=== PATIENT | female | born 1965 | race Two or more races ===

== ENCOUNTER → 2016-10-26 | Outpatient (CLI) | payer MEDICAID ==
--- NOTE | 2016-10-26 13:24 | RADIOLOGY REPORT (SQ) ---
EXAM DESCRIPTION: C SP 4 OR 5 VIEWS COMPLETED DATE/TIME: 10/26/2016 12:33 pm REASON FOR STUDY: CERVICALGIA M54.2 CERVICALGIA COMPARISON: None. NUMBER OF VIEWS: Five views. TECHNIQUE: AP, lateral, obliques and odontoid radiographic images acquired of the cervical spine. LIMITATIONS: None. FINDINGS: MINERALIZATION: Normal. ALIGNMENT: There is straightening of the upper cervical spine. VERTEBRAE: Vertebral bodies of normal height. DISCS: Disc spaces are narrowed at C3-4, C4-5, C5-6, and C6-7. FORAMINA: No osteophytes or foraminal narrowing. LATERAL AND POSTERIOR ELEMENTS: Facets, lateral masses and spinous processes without significant find ings. HARDWARE: None in the spine. SOFT TISSUES: No masses or calcifications. Lung apices clear. OTHER: No other significant finding. IMPRESSION: Degenerative disc changes with no acute abnormality. TECHNICAL DOCUMENTATION: JOB ID: [id number] [employer]- All Rights Reserved
== END ==
LOC: OD 12:04
PROVIDERS: ATTEND Family Medicine
DX: M54.2 Cervicalgia (principal)
CPT/HCPCS: 72050

== ENCOUNTER → 2018-08-10 | Outpatient (CLI) | payer SELFPAY ==
--- NOTE | 2018-08-10 13:09 | RADIOLOGY REPORT (SQ) ---
EXAM DESCRIPTION: CHEST PA/LATERAL COMPLETED DATE/TIME: 08/10/2018 12:55 pm REASON FOR STUDY: COUGH COMPARISON: 09/01/2014 EXAM PARAMETERS: NUMBER OF VIEWS: two views TECHNIQUE: Digital Frontal and Lateral radiographic views of the chest acquired. RADIATION DOSE: NA LIMITATIONS: none FINDINGS: LUNGS AND PLEURA: No opacities, masses or pneumothorax. No pleural effusion. MEDIASTINUM AND HILAR STRUCTURES: No masses or contour abnormalities. HEART AND VASCULAR STRUCTURES: Heart normal size. No evidence for failure. BONES: No acute findings. HARDWARE: None in the chest. OTHER: Breast implants. IMPRESSION: 1. NO SIGNIFICANT RADIOGRAPHIC FINDING IN THE CHEST. TECHNICAL DOCUMENTATION: JOB ID: [id number] [employer]- All Rights Reserved Reading location - IP/workstation name: [email or web address]
== END ==
LOC: OD 12:39
PROVIDERS: ATTEND Nurse Practitioner Family
DX: R05 Cough (principal)
CPT/HCPCS: 71046

== ENCOUNTER 2019-06-12 09:12 | Observation (INO) | payer SELFPAY ==
[2019-06-12] MEDS ORDERED: ASPIRIN 81 MG TABLET, CHEWABLE PO ONE (10:46)
--- NOTE | 2019-06-12 10:49 | ER Document Report ---
ED Medical Screen (RME) - General Chief Complaint: General Weakness Stated Complaint: PALPITATIONS Time Seen by Provider: 06/12/19 10:46 Primary Care Provider: ADDISON JIMENEZ FNP-C [Primary Care Provider] - Follow up as needed Notes: HPI: 54-year-old female presenting to the emergency department complaining of chest pain that began around 830 this morning while she was cleaning a table at home. Patient developed some shortness of breath. 1 to 2 hours later while the discomfort was still continuing she developed a pressure sensation to the right upper arm and in the right perioral region. Patient does complain of some mild shortness of breath. No prior history of anything similar. There is a family history of coronary artery disease, PR in her father at age 53. Patient does not smoke. Patient complains of mild generalized weakness. No recent illness I have greeted and performed a rapid initial assessment of this patient. A comprehensive ED assessment and evaluation of the patient, analysis of test results and completion of the medical decision making process will be conducted by additional ED providers PHYSICAL EXAMINATION: GENERAL: Well-appearing, well-nourished and in mild acute distress. HEAD: Atraumatic, normocephalic. EYES: sclera anicteric, conjunctiva are normal. ENT: Moist mucous membranes. NECK: Normal range of motion LUNGS: Normal work of breathing lung sounds are clear to auscultation HEART: 2+ radial pulses bilaterally regular rate and rhythm ABD: limited by positioning for exam in triage. EXTREMITIES: no pitting or edema. No cyanosis. NEUROLOGICAL: No focal neurological deficits. Moves all extremities spontaneously and on command. PSYCH: Normal mood, normal affect. SKIN: Warm, Dry, normal turgor, no rashes or lesions noted. TRAVEL OUTSIDE OF THE [place] IN LAST 30 DAYS: No - Related Data Allergies/Adverse Reactions: No Known Allergies Allergy (Verified 06/12/19 10:46) Past Medical History - Social History Chew tobacco use (# tins/day): No Frequency of alcohol use: None Drug Abuse: None - Past Medical History Cardiac Medical History: Denies: Hx Coronary Artery Disease, Hx Heart Attack, Hx Hypertension Pulmonary Medical History: Reports: Hx Pneumonia Denies: Hx Asthma, Hx Bronchitis, Hx COPD Neurological Medical History: Denies: Hx Cerebrovascular Accident, Hx Seizures Musculoskeltal Medical History: Reports Hx Arthritis Psychiatric Medical History: Reports: Hx Anxiety, Hx Depression Past Surgical History: Reports: Hx Breast Surgery - Breast augmentation.. Denies: Hx Hysterectomy, Hx Pacemaker - Immunizations Hx Diphtheria, Pertussis, Tetanus Vaccination: No Physical Exam - Vital signs Vitals: Temp Pulse Resp BP Pulse Ox 98.0 F 59 L 16 119/73 98 06/12/19 09:36 06/12/19 09:36 06/12/19 09:36 06/12/19 09:36 06/12/19 09:36 Course - Vital Signs Vital signs: Temp Pulse Resp BP Pulse Ox 98.0 F 59 L 16 119/73 98 06/12/19 09:36 06/12/19 09:36 06/12/19 09:36 06/12/19 09:36 06/12/19 09:36 Doctor's Discharge - Discharge Referrals: ADDISON JIMENEZ FNP-C [Primary Care Provider] - Follow up as needed
[2019-06-12 11:37] LABS: ABSOLUTE LYMPHOCYTES (AUTO) 1.5 10^3/uL (0.5-4.7); ABSOLUTE MONOCYTES (AUTO) 0.4 10^3/uL (0.1-1.4); ABSOLUTE NEUT (AUTO) 2.5 10^3/uL (1.7-8.2); BASOPHILS % (AUTO) 0.7 % (0-2); HEMATOCRIT 39.2 % (36.0-47.0); HEMOGLOBIN 13.6 g/dL (12.0-15.5); MEAN CORPUSCULAR HEMOGLOBIN 30.9 pg (27.0-33.4); MEAN CORPUSCULAR HGB CONC 34.8 g/dL (32.0-36.0); MEAN CORPUSCULAR VOLUME 89 fl (80-97); MONOCYTES % (AUTO) 8.5 % (3-13); PLATELET COUNT 237 10^3/uL (150-450); RED BLOOD COUNT 4.42 10^6/uL (3.72-5.28); RED CELL DISTRIBUTION WIDTH 12.5 % (11.5-14.0); SEGMENTED NEUTROPHILS % (AUTO) 56.8 % (42-78); TOTAL CELLS COUNTED % (AUTO) 100 %; WHITE BLOOD COUNT 4.4 10^3/uL (4.0-10.5)
[2019-06-12 11:43] LABS: ALBUMIN 4.6 g/dL (3.5-5.0); ALKALINE PHOSPHATASE 60 U/L (38-126); ANION GAP 8 (5-19); ASPARTATE AMINO TRANSFERASE 30 U/L (14-36); BILIRUBIN,TOTAL 0.5 mg/dL (0.2-1.3); BLOOD UREA NITROGEN 7 mg/dL (7-20); CALCIUM 9.7 mg/dL (8.4-10.2); CARBON DIOXIDE 29 mmol/L (22-30); CHLORIDE 100 mmol/L (98-107); GLUCOSE 91 mg/dL (75-110); POTASSIUM 4.3 mmol/L (3.6-5.0); TOTAL PROTEIN 7.1 g/dL (6.3-8.2)
[2019-06-12 11:47] LABS: APPEARANCE,URINE CLEAR; BILIRUBIN,URINE NEGATIVE (NEGATIVE); COLOR,URINE STRAW; GLUCOSE, URINE NEGATIVE (NEGATIVE); KETONES,URINE NEGATIVE (NEGATIVE); LEUKOCYTE ESTERASE,URINE NEGATIVE (NEGATIVE); NITRITE,URINE NEGATIVE (NEGATIVE); PROTEIN,URINE NEGATIVE (NEGATIVE); UROBILINOGEN,URINE NEGATIVE mg/dL (<2.0)
--- NOTE | 2019-06-12 11:51 | RADIOLOGY REPORT (SQ) ---
EXAM DESCRIPTION: CHEST 2 VIEWS COMPLETED DATE/TIME: 06/12/2019 11:32 am REASON FOR STUDY: chest pain COMPARISON: PA and lateral views of the chest from 08/10/2018. EXAM PARAMETERS: NUMBER OF VIEWS: Two views. TECHNIQUE: PA and lateral views of the chest were obtained.. RADIATION DOSE: NA LIMITATIONS: none FINDINGS: LUNGS AND PLEURA: No consolidation, pleural effusion or pneumothorax. MEDIASTINUM AND HILAR STRUCTURES: No mediastinal or hilar contour abnormality. HEART AND VASCULAR STRUCTURES: The cardiac silhouette and pulmonary vasculature are within normal valdovinos its. BONES: Breast implants. HARDWARE: None in the chest. OTHER: No other finding. IMPRESSION: No acute cardiopulmonary process. TECHNICAL DOCUMENTATION: JOB ID: [id number] [employer]- All Rights Reserved Reading location - IP/workstation name: [email or web address]
--- NOTE | 2019-06-12 13:02 | ER Document Report ---
ED General - General Chief Complaint: General Weakness Stated Complaint: PALPITATIONS Time Seen by Provider: 06/12/19 10:46 Primary Care Provider: ADDISON JIMENEZ FNP-C [NURSE PRACTITIONER] - Follow up as needed Notes: Patient is a 54-year-old female with no significant past medical history who presents to the emergency department the chief complaint of intermittent right-sided symptoms and palpitations that began earlier today. The patient reports this morning she was cleaning a spot off of a table pushing hard with the right arm when she began to feel a pain in her chest and a weak sensation. She states she felt foggy in the head as if her sugar was low. She states that she drank some water and drank a bunch of "Powerade". She states that she was feeling better. She went on about her business, got in her car and attempted to drive to school. She states she drove about a mile and then sta rted having pain in the right upper arm. She states during this episode she also experienced some numbness to the right upper and right lower lip. She states these both lasted approximately 3 minutes or less and then subsided. She states she was able to make it to the parking lot of school and just felt generally weak. She states that she was able to walk to the elevator, asked a fellow student for candy in the elevator because she assumed again that it was her sugar and ate the candy. She had her son assist her with getting to class and states that upon arriving to class she just felt as though she was going to "black out". She left the classroom had help walking down to her car, went to an urgent care and then decided to come to the emergency department. She states here in the ER she feels perfectly normal her symptoms have not returned. She reports her father has a history of quadruple bypass, prior stroke and at the age of 74. Only family history that is known. Patient is a vegan, no reported past medical history, drugs, alcohol or tobacco. TRAVEL OUTSIDE OF THE [place] IN LAST 30 DAYS: No - Related Data Allergies/Adverse Reactions: No Known Allergies Allergy (Verified 06/12/19 10:46) Past Medical History - Social History Smoking Status: Never Smoker Chew tobacco use (# tins/day): No Frequency of alcohol use: None Drug Abuse: None Family History: Reviewed & Not Pertinent Patient has suicidal ideation: No Patient has homicidal ideation: No - Past Medical History Cardiac Medical History: Denies: Hx Coronary Artery Disease, Hx Heart Attack, Hx Hypertension Pulmonary Medical History: Reports: Hx Pneumonia Denies: Hx Asthma, Hx Bronchitis, Hx COPD Neurological Medical History: Denies: Hx Cerebrovascular Accident, Hx Seizures Musculoskeletal Medical History: Reports Hx Arthritis Psychiatric Medical History: Reports: Hx Anxiety, Hx Depression Past Surgical History: Reports: Hx Breast Surgery - Breast augmentation.. Denies: Hx Hysterectomy, Hx Pacemaker - Immunizations Hx Diphtheria, Pertussis, Tetanus Vaccination: No Hx Pneumococcal Vaccination: 05/08/85 Review of Systems - Review of Systems Constitutional: Weakness EENT: denies: Blurred vision Cardiovascular: Chest pain, Palpitations Respiratory: No symptoms reported Gastrointestinal: No symptoms reported Genitourinary: No symptoms reported Musculoskeletal: Other - Arm pain Neurological/Psychological: Weakness, Numbness, Other - Expressive aphasia -: Yes All other systems reviewed and negative Physical Exam - Vital signs Vitals: Temp Pulse Resp BP Pulse Ox 98.0 F 59 L 16 119/73 98 06/12/19 09:36 06/12/19 09:36 06/12/19 09:36 06/12/19 09:36 06/12/19 09:36 - General General appearance: Appears well, Alert - HEENT Head: Normocephalic, Atraumatic Eyes: Normal Pupils: PERRL Ears: Normal External canal: Normal Tympanic membrane: Normal Sinus: Normal Nasal: Normal Mouth/Lips: Normal Mucous membranes: Normal Pharynx: Normal Neck: Normal - Respiratory Respiratory status: No respiratory distress Chest status: Nontender Breath sounds: Normal Chest palpation: Normal - Cardiovascular Rhythm: Regular Heart sounds: Normal auscultation - Abdominal Inspection: Normal Distension: No distension Bowel sounds: Normal Tenderness: Nontender Organomegaly: No organomegaly - Extremities General upper extremity: Normal inspection, Nontender, Normal color, Normal ROM, Normal temperature General lower extremity: Normal inspection, Nontender, Normal color, Normal ROM, Normal temperature, Normal weight bearing. No: Nahomi's sign - Neurological Neuro grossly intact: Yes Cognition: Normal Orientation: AAOx4 Layo Coma Scale Eye Opening: Spontaneous Layo Coma Scale Verbal: Oriented Lyons Coma Scale Motor: Obeys Commands Layo Coma Scale Total: 15 Speech: Normal Cranial nerves: Normal Cerebellar coordination: Normal Motor strength normal: LUE, RUE, LLE, RLE Additional motor exam normals: Equal associate financial advisor. No: Involuntary movements, Pronator drift, Weakness, Hemiplegia Sensory: Normal Notes: NIH 0 during time of exam - Psychological Associated symptoms: Normal affect, Anxious - Skin Skin Temperature: Warm Skin Moisture: Dry Skin Color: Normal Course - Re-evaluation Re-evalutation: 06/12/19 14:18 I discussed the results with the patient at this time. Given her history, I suspect TIA. We discussed the implications of this in the future risk for stroke. Recommended admission. At this time she is not sure that she wants to be admitted to the hospital for financial reasons. She states she would like to take some time and speak to a financial counselor here in the hospital before she makes a decision. We discussed the risks and benefits at great length. She understands them well. After she speaks with financial services we will regroup for plan. 06/12/19 16:08 Spoke with the patient who agreed to her hospital admission at this time. I called and spoke with janice Wilkins on admissions for today, he recommended For admission to be Dr. Denney. I called Dr. Denney at extension [phone] and discussed the case with him at length. He will come to the emergency department and evaluate the patient for hospital admission. 06/12/19 16:57 Patient does not meet criteria for any thrombolytics given her history and physical consistent with a TIA that has completely resolved - Vital Signs Vital signs: Temp Pulse Resp BP Pulse Ox 98.6 F 59 L 20 104/62 97 06/12/19 16:26 06/12/19 09:36 06/12/19 16:12 06/12/19 16:12 06/12/19 16:12 - Laboratory Result Diagrams: 06/12/19 11:00 06/12/19 11:00 Laboratory results interpreted by me: 06/12/19 10:57 Urine Blood MODERATE H Discharge - Discharge Clinical Impression: TIA (transient ischemic attack) Condition: Serious Disposition: ADMITTED INPATIENT Admitting Provider: Олег (Hospitalist) Unit Admitted: Telemetry Referrals: ADDISON JIMENEZ FNP-C [NURSE PRACTITIONER] - Follow up as needed
--- NOTE | 2019-06-12 13:36 | RADIOLOGY REPORT (SQ) ---
EXAM DESCRIPTION: CT HEAD WITHOUT COMPLETED DATE/TIME: 06/12/2019 1:20 pm REASON FOR STUDY: ? tia COMPARISON: None. TECHNIQUE: Axial images acquired through the brain without intravenous contrast. Images reviewed wi th bone, brain and subdural windows. Additional sagittal and coronal reconstructions were generated. Images stored on PACS. All CT scanners at this facility use dose modulation, iterative reconstruction, and/or weight based d osing when appropriate to reduce radiation dose to as low as reasonably achievable (ALARA). [facility]: Dose Right [facility]: CareDose [facility]: Dose Right [facility]: Teradose 4D [facility]: RFEyeD RADIATION DOSE: CT Rad equipment meets quality standard of care and radiation dose reduction techniq ues were employed. CTDIvol: 53.2 mGy. DLP: 991 mGy-cm. mGy. LIMITATIONS: None. FINDINGS: VENTRICLES: Normal size and contour. CEREBRUM: No masses. No hemorrhage. No midline shift. No evidence for acute infarction. Normal gra y/white matter differentiation. No areas of low density in the white matter. CEREBELLUM: No masses. No hemorrhage. No alteration of density. No evidence for acute infarction. EXTRAAXIAL SPACES: No fluid collections. No masses. ORBITS AND GLOBE: No intra- or extraconal masses. Normal contour of globe without masses. CALVARIUM: No fracture. PARANASAL SINUSES: No fluid or mucosal thickening. SOFT TISSUES: No mass or hematoma. OTHER: No other significant finding. IMPRESSION: NORMAL BRAIN CT WITHOUT CONTRAST. EVIDENCE OF ACUTE STROKE: NO. COMMENT: Quality ID # [id number]: Final reports with documentation of one or more dose reduction techniques (e.g., Automated exposure control, adjustment of the mA and/or kV according to patient size, use of iterative reconstruction technique) TECHNICAL DOCUMENTATION: JOB ID: [id number] [employer]- All Rights Reserved Reading location - IP/workstation name: [email or web address]
--- NOTE | 2019-06-12 17:29 | PDOC H&P ---
History of Present Illness Admission Date/PCP: BEE GRULLON DO History of Present Illness: HARVEY LAZO is a 54 year old female with no significant past medical history who is on no medications at home who woke up this morning and was still feeling tired. She said she felt very thirsty and drank several glasses of water. 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 She said that when she got into the classroom she would just wanted to put her head down on her desk and she decided to leave the class. She said she had to get help with the buttons on the elevator to get out of the building because she could not work the buttons. She said at one point she also felt like she had a sensation of pain on the right side of her face but that also lasted only a second and then stopped. She said at one point she was having some trouble getting some words out but that also was very brief. She got someone to bring her over to the [facility] and she said shortly thereafter her symptoms completely abated. Her vital signs and all of her labs have been completely normal. She has not had a recurrence of her symptoms. Her head CT was normal. She has a family history of diabetes, thyroid disease, and heart disease. She does not smoke. Past Medical History Cardiac Medical History: Denies: Coronary Artery Disease, Myocardial Infarction, Hypertension Pulmonary Medical History: Reports: Pneumonia Denies: Asthma, Bronchitis, Chronic Obstructive Pulmonary Disease (COPD) Neurological Medical History: Denies: Seizures Musculoskeltal Medical History: Reports: Arthritis Psychiatric Medical History: Reports: Depression Hematology: Reports: Anemia Past Surgical History Past Surgical History: Denies: Hysterectomy, Pacemaker Social History Smoking Status: Never Smoker Electronic Cigarette use?: No Family History Family History: Reviewed & Not Pertinent, CVA, DM, Thyroid Disfunction Parental Family History Reviewed: Yes Children Family History Reviewed: Yes Sibling(s) Family History Reviewed.: Yes Medication/Allergy Home Medications: Ferrous Sulfate [Iron] 650 mg PO QID 11/04/15 Allergies/Adverse Reactions: No Known Allergies Allergy (Verified 06/12/19 10:46) Review of Systems All systems: reviewed and no additional remarkable complaints except as stated - All systems were reviewed and were negative except as noted in the HPI Physical Exam Vital Signs: Temp Pulse Resp BP Pulse Ox 98.6 F 56 L 20 104/62 97 06/12/19 16:26 06/12/19 11:25 06/12/19 16:12 06/12/19 16:12 06/12/19 16:12 Intake & Output 06/11/19 06/12/19 06/13/19 06:59 06:59 06:59 Weight 61.7 kg General appearance: PRESENT: no acute distress, cooperative, well-developed, well-nourished Head exam: PRESENT: atraumatic, normocephalic Eye exam: PRESENT: EOMI, PERRLA. ABSENT: conjunctival injection, nystagmus, scleral icterus Ear exam: PRESENT: normal external ear exam Mouth exam: PRESENT: moist, neck supple Throat exam: ABSENT: post pharyngeal erythema Neck exam: PRESENT: full ROM. ABSENT: carotid bruit, JVD, lymphadenopathy, meningismus, tenderness, thyromegaly Respiratory exam: PRESENT: clear to auscultation stacey, symmetrical, unlabored. ABSENT: accessory muscle use, chest wall tenderness, crackles, prolonged expiratory phas, rales, retraction, rhonchi, tachypnea, wheezes Cardiovascular exam: PRESENT: RRR, +S1, +S2. ABSENT: diastolic murmur, systolic murmur Pulses: PRESENT: normal carotid pulses Vascular exam: PRESENT: normal capillary refill GI/Abdominal exam: PRESENT: normal bowel sounds, soft. ABSENT: distended, guarding, rebound, tenderness Extremities exam: ABSENT: clubbing, pedal edema Musculoskeletal exam: PRESENT: normal inspection. ABSENT: deformity Neurological exam: PRESENT: alert, awake, oriented to person, oriented to place, oriented to time, oriented to situation, CN II-XII grossly intact. ABSENT: motor sensory deficit Psychiatric exam: PRESENT: appropriate affect, normal mood Skin exam: PRESENT: dry, warm Results Laboratory Results: 06/12/19 11:00 06/12/19 11:00 06/12/19 06/12/19 06/12/19 10:57 11:00 11:00 WBC 4.4 RBC 4.42 Hgb 13.6 Hct 39.2 MCV 89 MCH 30.9 MCHC 34.8 RDW 12.5 Plt Count 237 Seg Neutrophils % 56.8 Sodium 137.0 Potassium 4.3 Chloride 100 Carbon Dioxide 29 Anion Gap 8 BUN 7 Creatinine 0.60 Est GFR ( Amer) > 60 Glucose 91 Calcium 9.7 Total Bilirubin 0.5 AST 30 Alkaline Phosphatase 60 Total Protein 7.1 Albumin 4.6 Urine Color STRAW Urine Appearance CLEAR Urine pH 7.0 Ur Specific Gar[place] 1.000 Urine Protein NEGATIVE Urine Glucose (UA) NEGATIVE Urine Ketones NEGATIVE Urine Blood MODERATE H Urine Nitrite NEGATIVE Ur Leukocyte Esterase NEGATIVE Urine WBC (Auto) 0 Urine RBC (Auto) 0 06/12/19 11:00 Troponin I < 0.012 Impressions: Chest X-Ray 06/12/19 10:46 IMPRESSION: No acute cardiopulmonary process. Head CT 06/12/19 12:56 IMPRESSION: NORMAL BRAIN CT WITHOUT CONTRAST. EVIDENCE OF ACUTE STROKE: NO. Assessment and Plan - Diagnosis (1) TIA (transient ischemic attack) Is this a current diagnosis for this admission?: Yes Plan: She does not really have much in the way of risk factors to modify. We will check a lipid panel. We will put her on an aspirin. We will watch her on telemetry. We will get an MRI of the brain. Get a carotid Doppler ultrasound. If all of these are negative, I will likely recommend that she continue with the aspirin and be discharged with an event monitor and follow-up with a carbider. - Time Time Spent with patient: 35 or more minutes
--- NOTE | 2019-06-12 18:38 | EKG REPORT ---
SEVERITY:- NORMAL ECG - SINUS RHYTHM : Confirmed by: Jaimie Dueñas MD 12-Jun-2019 18:36:54
--- NOTE | 2019-06-13 00:01 | RADIOLOGY REPORT (SQ) ---
BILATERAL CAROTID ARTERY ULTRASOUND: 06/12/2019 10:58 PM BOW MAKER GIFT WRAPPING TECHNIQUE: Grayscale, color, and spectral evaluation of the carotid arteries was performed. COMPARISON: None available CLINICAL HISTORY: 54-year old patient with TIA. TECHNIQUE: Salcedo-scale, duplex and color Doppler images of the carotid systems are obtained bilaterally. (Validated velocity measurements with angiographic measurements - Velocity criteria are extrapolated from diameter data as defined by the Society of Radiologists in Ultrasound Consensus Conference, Radiology 2003; 229; 340 - 346.) FINDINGS: Minimal atherosclerotic plaque and intimal thickening is seen within both carotid bulbs as well as the proximal internal and external carotid arteries. Spectral analysis demonstrates peak systolic and end-diastolic velocities as follows: RIGHT: CCA: 93.4 cm/s, 33.2 cm/s Proximal ICA: 73.7 cm/s, 32.9 cm/s Distal ICA: 92.8 cm/s, 30.3 cm/s LEFT: CCA: 104 cm/s, 34.7 cm/s Proximal ICA: 87.1 cm/s, 33.6 cm/s Distal ICA: 93.7 cm/s, 32.0 cm/s The ICA:CCA ratio on the right is 1.0, and on the left is 0.9. There is antegrade flow in both vertebral arteries. IMPRESSION: No evidence of a hemodynamically significant abnormality within the internal carotid arteries. Peak systolic and end-diastolic velocities are all consistent with luminal narrowing of less than 50%.
--- NOTE | 2019-06-13 00:07 | RADIOLOGY REPORT (SQ) ---
EXAM DESCRIPTION: MRI OF THE BRAIN WITHOUT CONTRAST CLINICAL HISTORY: 54 years Female tia COMPARISON: CT examination same day. TECHNIQUE: Routine multiplanar MR imaging of the brain without contrast. FINDINGS: There are two tiny T2 and FLAIR hyperintense foci in the right anterior estes radiata and a tiny solitary focus in the left anterior estes radiata, within normal limits for the patient's age. The white matter and lee matter signal is otherwise unremarkable. Diffusion imaging is normal with no ischemic area. The subdural spaces are normal and the ventricles are normal in size. There is no mass or evidence of mass effect. There is no evidence of subarachnoid or intracerebral blood. The visualized paranasal sinuses are unremarkable except for a small retention cyst along the anteroinferior right maxillary sinus. The orbits, pituitary gland, cavernous sinuses and VII/VIII cranial nerve root complexes are unremarkable. The mastoid air cells are clear. The craniocervical junction is unremarkable. Of incidental note, sagittal images demonstrate moderate to severe degenerative disc disease at the C3-4 level with a posterior disc-spur complex slightly impressing upon the ventral cord. IMPRESSION: No intracranial abnormalities are recognized. Small retention cyst in the right maxillary sinus. Moderate to severe degenerative disc disease at C3-4 with a posterior disc-spur complex slightly impressing upon the ventral cord.
[2019-06-13] MEDS ORDERED: INFLUENZA QUAD (6MOS+) 2019-20 VAC 0.5 ML SYR IM ONE (00:31)
[2019-06-13] MEDS ORDERED: ACETAMINOPHEN 325 MG TABLET PO PRN (01:37)
[2019-06-13 08:24] LABS: ANION GAP 6 (5-19); BLOOD UREA NITROGEN 13 mg/dL (7-20); CALCIUM 9.3 mg/dL (8.4-10.2); CARBON DIOXIDE 29 mmol/L (22-30); CHLORIDE 104 mmol/L (98-107); CHOLESTEROL 212.97 mg/dL (0-200); GLUCOSE 79 mg/dL (75-110); POTASSIUM 4.2 mmol/L (3.6-5.0); TRIGLYCERIDES 53 mg/dL (<150)
[2019-06-13 08:35] LABS: DIRECT LDL 130 mg/dL (<100)
[2019-06-13] MEDS ORDERED: ASPIRIN 81 MG TABLET, CHEWABLE PO SCH (10:00)
[2019-06-13 13:17] VITALS: BP 104/60
--- NOTE | 2019-06-13 16:37 | PDOC DISCHARGE SUMMARY ---
Impression - Admit/DC Date/PCP Admission Date/Primary Care Provider: 06/12/19 18:07 BEE GRULLON DO Discharge Date: 06/13/19 - Discharge Diagnosis (1) TIA (transient ischemic attack) Is this a current diagnosis for this admission?: Yes - Additional Information Resuscitation Status: Full Code Discharge Diet: Regular Discharge Activity: Activity As Tolerated Referrals: BEE GRULLON DO [Primary Care Provider] - 06/21/19 4:00 pm MELODY BENAVIDEZ MD [EMERITUS] - (for ambulatory vamper (Zio patch or Holter monitor) due to palpitations, within 1 week) Home Medications: Aspirin [Aspirin 81 mg Chewable Tablet] 81 mg PO DAILY tab.chew 06/13/19 History of Present Illiness History of Present Illness: HARVEY LAZO is a 54 year old female with no significant past medical history who is on no medications at home who woke up this morning and was still feeling tired. She said she felt very thirsty and drank several glasses of water. 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 She said that when she got into the classroom she would just wanted to put her head down on her desk and she decided to leave the class. She said she had to get help with the buttons on the elevator to get out of the building because she could not work the buttons. She said at one point she also felt like she had a sensation of pain on the right side of her face but that also lasted only a second and then stopped. She said at one point she was having some trouble getting some words out but that also was very brief. She got someone to bring her over to the hospital and she said shortly thereafter her symptoms completely abated. Her vital signs and all of her labs have been completely normal. She has not had a recurrence of her symptoms. Her head CT was normal. She has a family history of diabetes, thyroid disease, and heart disease. She does not smoke. Hospital Course Hospital Course: MRI and carotid Dopplers were normal. Troponins were normal. HDL was 66, LDL was 130. She does not want to start a statin. She does agree to take a baby aspirin at home. She had no events on telemetry overnight. We have set her up with Dr. Benavidez for ambulatory cardiac monitoring. We scheduled her follow-up with her primary care provider. Labs and examination were reassuring she was discharged in stable condition. Physical Exam Vital Signs: Temp Pulse Resp BP Pulse Ox 97.9 F 67 16 104/60 99 06/13/19 13:14 06/13/19 13:14 06/13/19 13:14 06/13/19 13:14 06/13/19 13:14 Intake & Output 06/12/19 06/13/19 06/14/19 06:59 06:59 06:59 Intake Total 360 Output Total 0 Balance 0 360 Weight 62 kg General appearance: PRESENT: no acute distress, cooperative, well-developed, well-nourished Respiratory exam: PRESENT: clear to auscultation stacey, symmetrical, unlabored. ABSENT: accessory muscle use, chest wall tenderness, crackles, prolonged expiratory phas, rales, retraction, rhonchi, tachypnea, wheezes Cardiovascular exam: PRESENT: RRR, +S1, +S2. ABSENT: diastolic murmur, systolic murmur Pulses: PRESENT: normal carotid pulses Vascular exam: PRESENT: normal capillary refill GI/Abdominal exam: PRESENT: normal bowel sounds, soft. ABSENT: distended, guarding, rebound, tenderness Extremities exam: ABSENT: clubbing, pedal edema Musculoskeletal exam: PRESENT: normal inspection. ABSENT: deformity Neurological exam: PRESENT: alert, awake, oriented to person, oriented to place, oriented to time, oriented to situation, CN II-XII grossly intact. ABSENT: motor sensory deficit Results Laboratory Results: WBC 4.4 10^3/uL (4.0-10.5) 06/12/19 11:00 RBC 4.42 10^6/uL (3.72-5.28) 06/12/19 11:00 Hgb 13.6 g/dL (12.0-15.5) 06/12/19 11:00 Hct 39.2 % (36.0-47.0) 06/12/19 11:00 MCV 89 fl (80-97) 06/12/19 11:00 MCH 30.9 pg (27.0-33.4) 06/12/19 11:00 MCHC 34.8 g/dL (32.0-36.0) 06/12/19 11:00 RDW 12.5 % (11.5-14.0) 06/12/19 11:00 Plt Count 237 10^3/uL (150-450) 06/12/19 11:00 Lymph % (Auto) 33.0 % (13-45) 06/12/19 11:00 [place] % (Auto) 8.5 % (3-13) 06/12/19 11:00 Eos % (Auto) 1.0 % (0-6) 06/12/19 11:00 Baso % (Auto) 0.7 % (0-2) 06/12/19 11:00 Absolute Neuts (auto) 2.5 10^3/uL (1.7-8.2) 06/12/19 11:00 Absolute Lymphs (auto) 1.5 10^3/uL (0.5-4.7) 06/12/19 11:00 Absolute Monos (auto) 0.4 10^3/uL (0.1-1.4) 06/12/19 11:00 Absolute Eos (auto) 0.0 10^3/uL (0.0-0.6) 06/12/19 11:00 Absolute Basos (auto) 0.0 10^3/uL (0.0-0.2) 06/12/19 11:00 Seg Neutrophils % 56.8 % (42-78) 06/12/19 11:00 Sodium 139.1 mmol/L (137-145) 06/13/19 07:31 Potassium 4.2 mmol/L (3.6-5.0) 06/13/19 07:31 Chloride 104 mmol/L (98-107) 06/13/19 07:31 Carbon Dioxide 29 mmol/L (22-30) 06/13/19 07:31 Anion Gap 6 (5-19) 06/13/19 07:31 BUN 13 mg/dL (7-20) 06/13/19 07:31 Creatinine 0.67 mg/dL (0.52-1.25) 06/13/19 07:31 Est GFR ( Amer) > 60 (>60) 06/13/19 07:31 Est GFR (MDRD) Non-Af > 60 (>60) 06/13/19 07:31 Glucose 79 mg/dL (75-110) 06/13/19 07:31 Calcium 9.3 mg/dL (8.4-10.2) 06/13/19 07:31 Total Bilirubin 0.5 mg/dL (0.2-1.3) 06/12/19 11:00 Direct Bilirubin 0.0 mg/dL (0.0-0.4) 06/12/19 11:00 Neonat Total Bilirubin Not Reportable 06/12/19 11:00 Neonat Direct Bilirubin Not Reportable 06/12/19 11:00 Neonat Indirect Bili Not Reportable 06/12/19 11:00 AST 30 U/L (14-36) 06/12/19 11:00 ALT 18 U/L (<35) 06/12/19 11:00 Alkaline Phosphatase 60 U/L (38-126) 06/12/19 11:00 Troponin I < 0.012 ng/mL 06/13/19 07:30 Total Protein 7.1 g/dL (6.3-8.2) 06/12/19 11:00 Albumin 4.6 g/dL (3.5-5.0) 06/12/19 11:00 Triglycerides 53 mg/dL (<150) 06/13/19 07:31 Cholesterol 212.97 mg/dL (0-200) H 06/13/19 07:31 LDL Cholesterol Direct 130 mg/dL (<100) H 06/13/19 07:31 VLDL Cholesterol 11.0 mg/dL (10-31) 06/13/19 07:31 HDL Cholesterol 66 mg/dL (>40) 06/13/19 07:31 Urine Color STRAW 06/12/19 10:57 Urine Appearance CLEAR 06/12/19 10:57 Urine pH 7.0 (5.0-9.0) 06/12/19 10:57 Ur Specific [place] 1.000 06/12/19 10:57 Urine Protein NEGATIVE mg/dL (NEGATIVE) 06/12/19 10:57 Urine Glucose (UA) NEGATIVE mg/dL (NEGATIVE) 06/12/19 10:57 Urine Ketones NEGATIVE mg/dL (NEGATIVE) 06/12/19 10:57 Urine Blood MODERATE (NEGATIVE) H 06/12/19 10:57 Urine Nitrite NEGATIVE (NEGATIVE) 06/12/19 10:57 Urine Bilirubin NEGATIVE (NEGATIVE) 06/12/19 10:57 Urine Urobilinogen NEGATIVE mg/dL (<2.0) 06/12/19 10:57 Ur Leukocyte Esterase NEGATIVE (NEGATIVE) 06/12/19 10:57 Urine WBC (Auto) 0 /HPF 06/12/19 10:57 Urine RBC (Auto) 0 /HPF 06/12/19 10:57 Urine Ascorbic Acid NEGATIVE (NEGATIVE) 06/12/19 10:57 06/12/19 06/12/19 06/13/19 11:00 18:38 00:52 Troponin I < 0.012 < 0.012 < 0.012 06/13/19 07:30 Troponin I < 0.012 Impressions: Carotid Doppler Study 06/12/19 00:00 IMPRESSION: No evidence of a hemodynamically significant abnormality within the internal carotid arteries. Peak systolic and end-diastolic velocities are all consistent with luminal narrowing of less than 50%. Head MRI 06/12/19 00:00 IMPRESSION: No intracranial abnormalities are recognized. Small retention cyst in the right maxillary sinus. Moderate to severe degenerative disc disease at C3-4 with a posterior disc-spur complex slightly impressing upon the ventral cord. Chest X-Ray 06/12/19 10:46 IMPRESSION: No acute cardiopulmonary process. Head CT 06/12/19 12:56 IMPRESSION: NORMAL BRAIN CT WITHOUT CONTRAST. EVIDENCE OF ACUTE STROKE: NO. Plan Time Spent: Greater than 30 Minutes Stroke Is this a Stroke Patient?: No Acute Heart Failure - Is this a Heart Failure Patient?: No
== END 2019-06-13 13:53 | disposition home or self-care (01) ==
LOC: ER 09:12 → EH 18:07 → 3S 23:56
PROVIDERS: ADMIT Family Medicine; ATTEND Family Medicine
DX: G45.9 Transient cerebral ischemic attack, unspecified (principal); M50.31 Other cervical disc degeneration, high cervical region; R00.2 Palpitations; R07.9 Chest pain, unspecified; M79.621 Pain in right upper arm; R53.1 Weakness; R06.02 Shortness of breath; R29.700 NIHSS score 0; Z82.49 Family history of ischemic heart disease and other diseases of the circulatory system; Z83.3 Family history of diabetes mellitus; Z82.3 Family history of stroke; Z23 Encounter for immunization
CPT/HCPCS: 93005; 99285; 36415 ×2; 85025; 80048; 80053; 81001; 84484 ×2; 80061; 93880; 70551; 71046; 70450; 90686; 93010; G0378 ×2

== ENCOUNTER → 2019-07-02 | Outpatient (CLI) | payer MEDICAID ==
--- NOTE | 2019-07-03 13:39 | WOMENS IMAGING REPORT ---
EXAM DESCRIPTION: BILAT SCREENING MAMMO W/CAD COMPLETED DATE/TIME: 07/02/2019 1:49 pm REASON FOR STUDY: Z12.31 SCREENING MAMMO Z12.31 ENCNTR SCREEN MAMMOGRAM FOR MALIGNANT NEOPLASM OF B RE COMPARISON: None. EXAM PARAMETERS: Standard craniocaudal and mediolateral oblique views of each breast recorded using digital acquisition. Additional "push-back" craniocaudal and mediolateral oblique images acquired. Read with the assistance of CAD. .FORMERLY [facility], [facility] - QA on Request Traffic Operator Version 9.2 LIMITATIONS: None. FINDINGS: IMPLANTS: Bilateral subglandular implants. Findings present which are benign by mammographic criteria. No suspicious masses, calcifications or architectural distortion. Benign mammographic findings may include one or more of the following: Smooth masses, popcorn/rim/co arse calcifications, asymmetries, post-procedure changes, and lesions with long-standing stability. IMPRESSION: BENIGN MAMMOGRAPHIC FINDINGS. BIRADS 2 BREAST DENSITY: b. There are scattered areas of fibroglandular density. BIRAD: ASSESSMENT: 2 BENIGN FINDING(S) RECOMMENDATION: ROUTINE SCREENING COMMENT: The patient has been notified of the results by letter per MQSA requirements. Additional no tification policies are in place for contacting patient with suspicious or incomplete findings. Quality ID #[id number]: The [employer] recommends an annual screening mammogram for women aged 40 years or over. This facility utilizes a reminder system to ensure that all patients receive reminder letters, and/or direct phone calls for appointments. This includes reminders for routine scr eening mammograms, diagnostic mammograms, or other Breast Imaging Interventions when appropriate. Th is patient will be placed in the appropriate reminder system. TECHNICAL DOCUMENTATION: FINDING NUMBER: (1) ASSESSMENT: (1) JOB ID: [id number] 2010 [employer]- All Rights Reserved Reading location - IP/workstation name: [email or web address]
== END ==
LOC: WI 13:20
PROVIDERS: ATTEND Nurse Practitioner Family
DX: Z12.31 Encounter for screening mammogram for malignant neoplasm of breast (principal)
CPT/HCPCS: 77067

== ENCOUNTER → 2019-07-05 | Outpatient (CLI) | payer MEDICAID | LOC: OD 13:50 | PROVIDERS: ATTEND Physician Assistant | DX: R00.2 Palpitations (principal); R07.9 Chest pain, unspecified | CPT/HCPCS: 36415; 83735; 84443 ==

== ENCOUNTER → 2019-08-06 | Outpatient (CLI) | payer MEDICAID ==
--- NOTE | 2019-08-06 13:31 | DRAGON STRESS TEST REPORT ---
EXERCISE CARDIOLITE STRESS TEST USING SINGLE PHOTON EMMISION COMPUTERIZED TOMOGRAPHIC. DATE OF PROCEDURE: August 06, 2019 INDICATION : Chest pain CARDIAC RISK FACTORS: None significant RESTING EKG: Sinus rhythm without any baseline ST segment changes REASON FOR TERMINATION: Dyspnea and fatigue. PROCEDURE REPORT: Baseline heart rate 75 beats per minute with blood pressure of 113/76. Patient had no significant complaints. Patient was exercised on a standard Teo protocol. Patient exercised for a total of 10 minutes and 05 seconds. Peak heart rate 157 which is 94 % of predicted maximum. Peak blood pressure 159/71. Double product was noted to be adequate kcal. No significant EKG changes were noted. Patient had no significant complaints during the procedure or postprocedure. IMPRESSION EXERCISE PART: Excellent exercise tolerance for patient age. Borderline upsloping EKG ST segment changes with exercise. NUCLEAR DATA: At rest the patient was given 10.78 millicuries of technetium 99 sestamibi injected intravenously. As per protocol rest gated SPECT images were obtained. Subsequently the stress dose of 31.8 millicuries of technetium 99 sestamibi was injected intravenously at peak exercise and patient continued to exercise for 1 to 2 additional minute. As per protocol stress gated images were obtained. NUCLEAR INTERPRETATION: Both raw and processed data were used for interpretation. Visual, qualitative, computer-generated quantitative data was used. There was good myocardial uptake of technetium compound. Motion artifact and soft tissue attenuations were noted. Increased visceral uptake was noted. No definitive areas of transient perfusion defect noted. Mild decreased uptake was noted in the septal wall but felt to be related to attenuation artifact from differences in breast attenuation. No definitive areas of fixed perfusion defect or scars noted. EKG gated imaging showed LV EF at 68 %, rest and stress gated EF similar visually. T. I D. ratio was 0.92. Lung heart ratio noted to be within normal limits 0.15. No significant extracardiac and abnormal radiotracer activities were noted. RV free wall uptake was noted to be WNL. IMPRESSION: Also refer to comments under nuclear interpretation. Also test results needs to be interpreted in the context of pretest probability. 1. There is no definitive scintigraphic evidence of exercise induced myocardial ischemia at achieved double product. Mild decreased uptake was noted in the septal wall but felt to be related to differences in breast attenuation artifact and probably not clinically important. However may consider stress echo if clinically indicated. 2. There is no definitive scintigraphic evidence of myocardial infarction/scar. 3. EKG gated imaging shows left ejection fraction of approximately 68% 4. Patient noted to have average exercise tolerance. Patient had adequate heart rate response. BP response mildly suboptimal but this is not uncommon in women at her age. No significant EKG changes were noted with exercise at adequate double product. RECOMMENDATIONS: Aggressive risk factor modification, medical therapy. Further evaluation may be needed if patient continues with significant symptoms or has other high risk features. Consider cardiology consultation and or follow-up if clinically indicated. Obed Hines M.D., [employer], Board certified in cardiovascular diseases, Nuclear cardiology, Echocardiography Cardiac CT and cardiac MRI Ph. [phone] [facility]
== END ==
LOC: RAD 06:32
PROVIDERS: ATTEND Internal Medicine Cardiovascular Disease
DX: R07.9 Chest pain, unspecified (principal)
CPT/HCPCS: 93017; 78452; A9500; Q9969